=== PATIENT | male | born 1980 | race Caucasian/White ===

== ENCOUNTER → 2018-05-07 | Outpatient (CLI) | payer OTHER | LOC: M WUC 11:29 | DX: S60.221A Contusion of right hand, initial encounter (principal) | CPT/HCPCS: 73130 ==

== ENCOUNTER → 2022-01-27 | Outpatient (CLI) | payer OTHER | LOC: M RAD 11:04 | PROVIDERS: ATTEND Physician Assistant Medical | DX: M54.2 Cervicalgia (principal) ==

== ENCOUNTER → 2022-04-11 | Outpatient (CLI) | payer OTHER ==
[2022-04-11 16:13] LABS: RHEUMATOID FACTOR QUANT < 10.0 IU/ML (<15.0); TOTAL PROTEIN 6.8 GM/DL (6.4-8.2)
[2022-04-11 16:39] LABS: HEMOGLOBIN A1c 5.1 %
[2022-04-11 17:08] LABS: TOTAL 25(OH) VITAMIN D 29.2 NG/ML (30.0-100.0); VITAMIN B12 LEVEL 384 PG/ML (247-911)
[2022-04-12 12:25] LABS: ALBUMIN % 67.6 % (55.8-66.1); ALPHA-1-GLOBULIN % 3.9 % (2.9-4.9); ALPHA-1-GLOBULINS 0.27 GM/DL (0.17-0.41); ALPHA-2-GLOBULINS 0.56 GM/DL (0.42-0.99); ALPHA-2-GLOBULINS % 8.3 % (7.1-11.8); BETA-1-GLOBULINS 0.33 GM/DL (0.28-0.60); BETA-1-GLOBULINS % 4.9 % (4.7-7.2); BETA-2-GLOBULINS 0.22 GM/DL (0.19-0.55); BETA-2-GLOBULINS % 3.2 % (3.2-6.5); GAMMA GLOBULIN % 12.1 % (11.1-18.8); GAMMA GLOBULINS 0.82 GM/DL (0.65-1.58)
== END ==
LOC: M LAB 14:26
PROVIDERS: ATTEND Psychiatry & Neurology Neurology
DX: G62.9 Polyneuropathy, unspecified (principal); E11.9 Type 2 diabetes mellitus without complications